=== PATIENT | female | born 1995 | race Caucasian/White ===

== ENCOUNTER 2024-04-19 21:57 | Emergency (ER) | payer OTHER ==
[~2024-04-19] VITALS: Ht 160 cm; Wt 73.5 kg
[~2024-04-19 21:57] MED LIST: AMOXICILLIN500 MG PO; NAPROXEN375 M1 PO
[2024-04-19] MEDS ORDERED: Ondansetron Hydrochloride 4 MG TAB SL ONE (22:20)
[2024-04-19] MEDS ORDERED: Promethazine Hydrochloride 25 MG/ML VIAL IM ONE (23:10)
[2024-04-19] MEDS ORDERED: AVPAK AZITHROM250 MG PO (23:12)
== END 2024-04-19 23:30 | disposition home or self-care (01) ==
LOC: ED 21:57
DX: J40 Bronchitis, not specified as acute or chronic (principal); F17.290 Nicotine dependence, other tobacco product, uncomplicated

== ENCOUNTER 2024-07-21 22:29 | Emergency (ER) | payer OTHER ==
[~2024-07-21] VITALS: Ht 160 cm; Wt 98.4 kg
[~2024-07-21 22:29] MED LIST changes: +AVPAK AZITHROM250 MG PO
[2024-07-21] MEDS ORDERED: Ondansetron Hydrochloride 4 MG/2 ML VIAL IV ONE (23:15)
[2024-07-21] MEDS ORDERED: SODIUM CHLORIDE 0.9% 1,000 ML IV ONE (23:15)
[2024-07-22] MEDS ORDERED: Phenergan25 MG PO (00:50)
== END 2024-07-22 00:56 | disposition home or self-care (01) ==
LOC: ED 22:29
DX: J10.1 Influenza due to other identified influenza virus with other respiratory manifestations (principal); R11.2 Nausea with vomiting, unspecified; Z20.822 Contact with and (suspected) exposure to COVID-19

== ENCOUNTER 2025-05-07 08:28 | Emergency (ER) | payer OTHER ==
[~2025-05-07] VITALS: Ht 157.4 cm; Wt 88.5 kg
[~2025-05-07 08:28] MED LIST changes: +Phenergan25 MG PO
[2025-05-07] MEDS ORDERED: diphenhydrAMINE hydrochloride 50 MG/ML VIAL IV ONE (08:50)
[2025-05-07] MEDS ORDERED: Ondansetron Hydrochloride 4 MG/2 ML VIAL IV ONE ×2 (08:50→11:05)
[2025-05-07] MEDS ORDERED: SODIUM CHLORIDE 0.9% 1,000 ML IV ONE ×2 (08:50→14:20)
[2025-05-07 09:10] LABS: BASO # 0.0 10*3/uL (0.0-0.1); BASO % 0.3 % (0.0-1.0); EOS # 0.0 10*3/uL (0.0-0.4); EOS % 0.3 % (1.0-4.0); MEAN CELL VOLUME 88.0 fl (81.0-99.0); MEAN CORPUSCULAR HGB 28.3 pg (27.0-31.0); MEAN PLATELET VOLUME 10.1 fl (9.6-12.3); MONO # 0.5 10*3/uL (0.1-1.0); MONO % 4.9 % (3.0-9.0); NEUT # 7.5 10*3/uL (2.3-7.9); NEUT % 78.5 % (47.0-73.0); NUCLEATED RED BLOOD CELL 0.0 % (0.0-0.0); NUCLEATED RED BLOOD CELL 0.0 10*3/uL (0.0-0.0); PLATELET COUNT AUTOMATED 188 10*3/uL (130-400); RED CELL DISTRI WIDTH 13.2 % (0-14.5)
[2025-05-07 10:27] LABS: BUN 9 mg/dl (9-23); SGPT/ALT 19 U/L (5-49)
[2025-05-07 10:28] LABS: BETA-HCG, QUANT < 3.0 mIU/mL (3-10)
[2025-05-07 10:28] LABS: BILIRUBIN Negative (Negative); BLOOD 3+ (Negative); CLARITY Turbid (Clear); COLOR Dark Yellow (Yellow); KETONE 4+ (Negative); LEUKO ESTERASE 3+ (Negative); NITRITE Positive (Negative); PH 7.5 (4.5-8.0); SPECIFIC GRAVITY 1.025 (1.001-1.030); UROBILINOGEN 1.0 E.U./dl (0.0-1.0)
[2025-05-07] MEDS ORDERED: Promethazine Hydrochloride 25 MG/ML VIAL IV ONE ×2 (10:30→14:20)
[2025-05-07 10:50] LABS: EPITHELIAL CELLS TNTC; RBC TNTC rbc/hpf (0-2); WBC TNTC wbc/hpf (0-5)
[2025-05-07 10:51] LABS: BACTERIA 4+
[2025-05-07] MEDS ORDERED: CIPROFLOXACIN 200 ML IV ONE (10:55)
[2025-05-07] MEDS ORDERED: Phenergan25 MG PO (15:43)
[2025-05-07] MEDS ORDERED: MECLIZINE HCL25 M2 PO (15:43)
[2025-05-07] MEDS ORDERED: CIPRO500 MG PO (15:43)
[2025-05-07] MEDS ORDERED: Promethazine Hydrochloride 25 MG TAB PO ONE ×2 (17:20)
== END 2025-05-07 17:43 | disposition home or self-care (01) ==
LOC: ED 08:28
PROVIDERS: Emergency Medicine
DX: N39.0 Urinary tract infection, site not specified (principal); R42 Dizziness and giddiness; R11.2 Nausea with vomiting, unspecified